=== PATIENT | female | born 1985 | race Caucasian/White ===

== ENCOUNTER 2019-08-11 07:31 | Inpatient (IN) | payer OTHER ==
[~2019-08-11] VITALS: Ht 165.1 cm; Wt 67.7 kg
[2019-08-11] VITALS (7 sets, daily range): BP systolic 90–102; BP diastolic 57–65
[2019-08-11] MEDS ORDERED: ONDANSETRON 2MG/ML, 2ML ONE (07:46)
[2019-08-11] MEDS ORDERED: MORPHINE SULFATE 4 MG/ML, 1ML ONE ×5 (07:46→10:08)
[2019-08-11] MEDS: MORPHINE SULFATE 4 MG/ML, 1ML IVPush PRN ×4 (07:50→09:36)
--- NOTE | 2019-08-11 07:53 | NUR ---
THIS PT WAS AMY DIOP. PT STATES SHE HAS SEVERE PAIN, THAT MAKES HER FEEL FAINT. PT STATES SHE WOKE UP COVERED IN HER GROIN AREA WITH BLOOD THIS AM. SHE STATES SHE FEELS WEAK. PT BP DOWN FROM WHAT JADON REPORTED, BUT SHE IS NOT TACHYCARDIC. SHE IS CONVERSING WITH RNS AT BEDSIDE.
--- NOTE | 2019-08-11 07:54 | NUR ---
PT MEDICATED TO MAR, CONVERSING WITH THIS RN. PT ON PHONE TO CALL INS[employer]ANCE [employer].
[2019-08-11] MEDS ORDERED: SODIUM CHLORIDE FLUSH 10ML SYR IVF ONE (08:00)
[2019-08-11] MEDS ORDERED: ONDANSETRON 2MG/ML, 2ML IVPush ONE (08:00)
[2019-08-11 08:05] LABS: MEAN CORPUSCULAR HEMOGLOBIN 33.3 pg (27.0-34.8); MEAN CORPUSCULAR HGB CONC 34.2 g/dL (32.4-35.8); MEAN CORPUSCULAR VOLUME 97.2 fL (80-100); MEAN PLATELET VOLUME 7.6 fL (7.4-10.4); PLATELET COUNT 264 x10^3/uL (130-400); RED CELL DISTRIBUTION WIDTH 13.1 % (9.6-15.2)
[2019-08-11 08:12] LABS: ALANINE AMINOTRANSFERASE 55 U/L (12-78); ALBUMIN 2.7 g/dL (3.4-5.0); ANION GAP 11 mmol/L (5-15); CALCIUM 7.5 mg/dL (8.5-10.1); CHLORIDE 115 mmol/L (98-107); CREATININE 0.59 mg/dL (0.55-1.02)
[2019-08-11 08:17] LABS: ALKALINE PHOSPHATASE 116 U/L (45-117); BILIRUBIN,TOTAL 0.6 mg/dL (0.2-1.0); TOTAL PROTEIN 6.1 g/dL (6.4-8.2)
--- NOTE | 2019-08-11 08:22 | NUR ---
PT STATES PAIN IS ELEVATED. REQUESTING ADDITIONAL MEDICATION. MEDICATED WITH MORPHINE
--- NOTE | 2019-08-11 08:25 | NUR ---
PT ACKNOWLEDGED CONSENT FOR BLOOD. OXYGEN ADMINSTED FOR COMFORT. SECOND WARM BLANKET AND WARMER PROVIDED PT IS SHIVERING IN BED.
[2019-08-11 08:26] LABS: BAND#(MANUAL) 0.25 x10^3/uL; BANDS%(MANUAL) 5 % (0-7); MD YES; SEG#(MANUAL) 2.99 x10^3/uL (1.8-6.8); SEGS% (MANUAL) 61 % (42-75)
[2019-08-11 08:27] LABS: BASOS#(MANUAL) 0.05 x10^3/uL (0-0.1); BASOS% (MANUAL) 1 % (0-1); EOS#(MANUAL) 0.15 x10^3/uL (0.0-0.4); EOS% (MANUAL) 3 % (1-7); LYMPH#(MANUAL) 1.47 x10^3/uL (1-3.4); LYMPHS% (MANUAL) 30 % (22-44)
[2019-08-11 08:28] LABS: <PLATELET ESTIMATE> ADEQUATE; <PLT MORPHOLOGY> NORMAL PLT MORPH; <RBC MORPHOLOGY> NORMAL
--- NOTE | 2019-08-11 08:31 | NUR ---
PT TO CT.
--- NOTE | 2019-08-11 08:58 | NUR ---
PT BACK FROM CT. REPORTED SHE IS FEELING VERY WEAK, PAIN THE SAME. VSS UNCHANGED. PT UPDATED ON POC.
[2019-08-11] MEDS ORDERED: OMNIPAQUE 350 MG/ML, 100ML BOTTLE ONE (08:59)
--- NOTE | 2019-08-11 09:28 | NUR ---
PT REPORTS PAIN COMES IN WAVES, STATES MINIMAL RELIEF FROM MORPHINE. SURGICAL SIGHT STILL ACTIVELY BLEEDING.
--- NOTE | 2019-08-11 09:40 | NUR ---
PT MEDICATED TO MAR. CONVERSING WITH RN ABOUT HER SX. PT STATES SHE IS WEAK BUT FEELING WARMER. PT UPDATED ON POC.
[2019-08-11] MEDS ORDERED: TRANEXAMIC ACID 1,000 MG in SODIUM CHLORIDE 0.9% 100 ML IV ONE (09:45)
[2019-08-11 10:02] LABS: MICROSCOPIC NOT IND
--- NOTE | 2019-08-11 10:17 | NUR ---
PT LAYING IN BED. ABLE TO HELP WHEN ROLLING IN BED. ERP TO BEDSIDE, PT UPDATED ON POC. BLOOD HUNG AND PT TOLERATING WELL.
[2019-08-11 10:20] LABS: INTERNATIONAL NORMALIZED RATIO 0.98 (0.93-1.1); PROTHROMBIN TIME 10.4 Seconds (9.6-11.5)
--- NOTE | 2019-08-11 10:42 | NUR ---
ADMITTING MD TO BEDSIDE. PT CONVERSING WITH DOCTOR.
[2019-08-11] MEDS ORDERED: BUTALB/APAP/CAFFEINE 50MG/325MG/40MG PO PRN (11:00)
[2019-08-11] MEDS ORDERED: BACLOFEN 10 MG TABLET PO PRN (11:00)
[2019-08-11] MEDS ORDERED: ONDANSETRON 2MG/ML, 2ML IVPush PRN (11:00)
[2019-08-11] MEDS ORDERED: ACETAMINOPHEN 325 MG TABLET PO PRN (11:00)
[2019-08-11] MEDS ORDERED: hydrALAzine 20 MG/ML, 1ML IVPush PRN (11:00)
[2019-08-11] MEDS ORDERED: TRAZODONE 50MG TABLET PO PRN (11:00)
[2019-08-11] MEDS ORDERED: LABETALOL 5MG/ML, 20ML IVPush PRN (11:00)
[2019-08-11] MEDS ORDERED: ONDANSETRON ODT 4 MG PO PRN (11:00)
[2019-08-11] MEDS ORDERED: POLYETHYLENE GLYCOL 17 GM PACKET PO PRN (11:00)
[2019-08-11] MEDS ORDERED: GUAIFENESIN/DM 200-20MG, 10ML UDC PO PRN (11:00)
[2019-08-11] MEDS ORDERED: DOCUSATE 100 MG CAPSULE PO PRN (11:00)
[2019-08-11] MEDS ORDERED: HYDROmorphone 2 MG/ML, 1ML IVPush PRN (11:00)
--- NOTE | 2019-08-11 11:13 | NUR ---
PT GIVEN WATER AND SALTINES. PT LAYING IN BED, EYES CLOSED, RESPIRATIONS EVEN AND UNLABORED, NO SIGNS OF DISTRESS.
--- NOTE | 2019-08-11 11:44 | NUR ---
BLOOD FINISHED INFUSING, STOPPED BY LEAH BABCOCK. PT SITTING IN BED, ON PHONE, NO SIGNS OF DISTRESS.
--- NOTE | 2019-08-11 12:02 | NUR ---
REPORT GIVEN TO LEAH RENTERIA.
[2019-08-11] MEDS ORDERED: OXYC-302 PO (12:06)
[2019-08-11] MEDS ORDERED: CEPH250T PO (12:06)
[2019-08-11] MEDS ORDERED: DIAZ2TAB PO (12:06)
--- NOTE | 2019-08-11 12:07 | NUR ---
PT LAYING IN BED, NO SIGNS OF DISTRESS, SOME BLEEDING AT INCISION SIGHT STILL NOTED.
[2019-08-11 16:36] LABS: BASOPHILS # (AUTO) 0.02 x10^3/uL (0-0.1); BASOPHILS % (AUTO) 0 % (0-1); EOSINOPHILS # (AUTO) 0.12 x10^3/uL (0-0.4); EOSINOPHILS % (AUTO) 2 % (1-7); LYMPHOCYTES # (AUTO) 1.62 x10^3/uL (1-3.4); LYMPHOCYTES % (AUTO) 26 % (22-44); MD NO; MEAN CORPUSCULAR HEMOGLOBIN 32.4 pg (27.0-34.8); MEAN CORPUSCULAR HGB CONC 34.1 g/dL (32.4-35.8); MEAN CORPUSCULAR VOLUME 95.1 fL (80-100); MEAN PLATELET VOLUME 7.6 fL (7.4-10.4); MONOCYTES # (AUTO) 0.15 x10^3/uL (0.2-0.8); MONOCYTES % (AUTO) 2 % (2-9); NEUTROPHILS # (AUTO) 4.41 x10^3/uL (1.8-6.8); NEUTROPHILS % (AUTO) 70 % (42-75); PLATELET COUNT 268 x10^3/uL (130-400); RED BLOOD COUNT 2.49 x10^6/uL (3.82-5.3); RED CELL DISTRIBUTION WIDTH 13.9 % (9.6-15.2)
[2019-08-11] MEDS: HYDROcodone/APAP 5/325 TABLET PO PRN ×2 (16:57→21:04)
[2019-08-11] MEDS: TRANEXAMIC ACID 650 MG TAB PO SCH (21:04)
[2019-08-12 00:27] VITALS: BP 90/49
[2019-08-12] MEDS: HYDROcodone/APAP 5/325 TABLET PO PRN ×3 (01:03→13:47)
[2019-08-12 02:51] VITALS: BP 80/56
[2019-08-12 04:36] VITALS: BP 91/59
[2019-08-12 05:47] LABS: ALBUMIN 2.7 g/dL (3.4-5.0); ANION GAP 4 mmol/L (5-15); CALCIUM 8.1 mg/dL (8.5-10.1); CHLORIDE 109 mmol/L (98-107)
[2019-08-12 05:49] LABS: MEAN CORPUSCULAR HEMOGLOBIN 31.7 pg (27.0-34.8); MEAN CORPUSCULAR HGB CONC 32.8 g/dL (32.4-35.8); MEAN CORPUSCULAR VOLUME 96.6 fL (80-100); MEAN PLATELET VOLUME 7.9 fL (7.4-10.4); PLATELET COUNT 241 x10^3/uL (130-400); RED BLOOD COUNT 2.27 x10^6/uL (3.82-5.3); RED CELL DISTRIBUTION WIDTH 14.4 % (9.6-15.2)
[2019-08-12 05:51] LABS: ALANINE AMINOTRANSFERASE 42 U/L (12-78); ALKALINE PHOSPHATASE 107 U/L (45-117); BILIRUBIN,TOTAL 1.6 mg/dL (0.2-1.0); CREATININE 0.66 mg/dL (0.55-1.02); TOTAL PROTEIN 5.8 g/dL (6.4-8.2)
[2019-08-12 06:04] LABS: BASOPHILS # (AUTO) 0.01 x10^3/uL (0-0.1); BASOPHILS % (AUTO) 0 % (0-1); EOSINOPHILS # (AUTO) 0.13 x10^3/uL (0-0.4); EOSINOPHILS % (AUTO) 3 % (1-7); LYMPHOCYTES # (AUTO) 1.78 x10^3/uL (1-3.4); LYMPHOCYTES % (AUTO) 35 % (22-44); MD SCAN; MONOCYTES # (AUTO) 0.24 x10^3/uL (0.2-0.8); MONOCYTES % (AUTO) 5 % (2-9); NEUTROPHILS # (AUTO) 2.92 x10^3/uL (1.8-6.8); NEUTROPHILS % (AUTO) 57 % (42-75)
[2019-08-12 06:35] VITALS: BP 85/56
[2019-08-12] MEDS: TRANEXAMIC ACID 650 MG TAB PO SCH ×2 (10:24→18:25)
[2019-08-12 13:23] LABS: BASOPHILS # (AUTO) 0.01 x10^3/uL (0-0.1); BASOPHILS % (AUTO) 0 % (0-1); EOSINOPHILS # (AUTO) 0.13 x10^3/uL (0-0.4); EOSINOPHILS % (AUTO) 3 % (1-7); LYMPHOCYTES # (AUTO) 1.56 x10^3/uL (1-3.4); LYMPHOCYTES % (AUTO) 32 % (22-44); MD NO; MEAN CORPUSCULAR HEMOGLOBIN 31.6 pg (27.0-34.8); MEAN CORPUSCULAR HGB CONC 32.8 g/dL (32.4-35.8); MEAN CORPUSCULAR VOLUME 96.6 fL (80-100); MEAN PLATELET VOLUME 7.7 fL (7.4-10.4); MONOCYTES # (AUTO) 0.24 x10^3/uL (0.2-0.8); MONOCYTES % (AUTO) 5 % (2-9); NEUTROPHILS # (AUTO) 2.93 x10^3/uL (1.8-6.8); NEUTROPHILS % (AUTO) 60 % (42-75); PLATELET COUNT 257 x10^3/uL (130-400); RED BLOOD COUNT 2.26 x10^6/uL (3.82-5.3); RED CELL DISTRIBUTION WIDTH 14.1 % (9.6-15.2)
[2019-08-12 13:43] VITALS: BP 106/70
[2019-08-12] MEDS ORDERED: TRAN650T3 PO (16:39)
== END 2019-08-12 19:45 | disposition home or self-care (01) | DRG 605 ==
LOC: ED 08:05 → EDIP 09:23 → 3N 12:16
PROVIDERS: ADMIT Family Medicine; ATTEND Family Medicine
PROC: 30233N1 Transfusion of Nonautologous Red Blood Cells into Peripheral Vein, Percutaneous Approach (ICD-10-PCS; principal; 2019-08-11)
PROC: 0T9B70Z Drainage of Bladder with Drainage Device, Via Natural or Artificial Opening (ICD-10-PCS; 2019-08-11)
DX: S30.1XXA Contusion of abdominal wall, initial encounter (principal); D62 Acute posthemorrhagic anemia; E46 Unspecified protein-calorie malnutrition; E87.2 Acidosis; Z68.24 Body mass index [BMI] 24.0-24.9, adult; Z90.49 Acquired absence of other specified parts of digestive tract; Y93.89 Activity, other specified; Y92.89 Other specified places as the place of occurrence of the external cause; Y99.8 Other external cause status
CPT/HCPCS: 36415; 74177; 80053; 81003; 83880; 84703; 85025; 85610; 86850; 86900; 86923; 93005; 96365; 96375; 96376; 99291; G0378; J1170; J2405; Q9967; J2270; P9016

== ENCOUNTER 2020-02-05 11:27 | Emergency (ER) | payer SELFPAY ==
[~2020-02-05] VITALS: Ht 165.1 cm; Wt 72.5 kg
[~2020-02-05 11:27] MED LIST: CEPH250T PO; DIAZ2TAB PO; OXYC-302 PO; TRAN650T3 PO
[2020-02-05] MEDS ORDERED: MORPHINE SULFATE 4 MG/ML, 1ML ONE (11:50)
[2020-02-05] MEDS ORDERED: ONDANSETRON 2MG/ML, 2ML ONE (11:50)
--- NOTE | 2020-02-05 11:53 | NUR ---
TO CT. STABLE.
--- NOTE | 2020-02-05 11:57 | NUR ---
[facility] Addendum: 02/05/20 at 1208 by [email or web address] [facility].
[2020-02-05] MEDS ORDERED: SODIUM CHLORIDE 0.9% 1,000 ML IV ONE (12:00)
[2020-02-05] MEDS ORDERED: ONDANSETRON 2MG/ML, 2ML IVPush ONE (12:00)
[2020-02-05] MEDS ORDERED: MORPHINE SULFATE 4 MG/ML, 1ML IVPush PRN (12:00)
[2020-02-05] MEDS ORDERED: SODIUM CHLORIDE FLUSH 10ML SYR IVF ONE (12:00)
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
[2020-02-05] MEDS ORDERED: OMNIPAQUE 350 MG/ML, 100ML BOTTLE ONE (12:26)
[2020-02-05] MEDS ORDERED: HYDROcodone/APAP 5/325 TABLET PO ONE (13:00)
[2020-02-05] MEDS ORDERED: HYDROcodone/APAP 5/325 TABLET ONE (13:16)
[2020-02-05 13:20] VITALS: BP 123/89
== END 2020-02-05 13:28 | disposition home or self-care (01) ==
LOC: ED 12:37
DX: S81.831A Puncture wound without foreign body, right lower leg, initial encounter (principal); Y22.XXXA Handgun discharge, undetermined intent, initial encounter; Y93.89 Activity, other specified; Y92.89 Other specified places as the place of occurrence of the external cause; Y99.8 Other external cause status
CPT/HCPCS: 73706; 96361; 96374; 96375; 99285; J2270; J2405; J7030; Q9967